=== PATIENT | male | born 1975 | race Caucasian/White ===

== ENCOUNTER 2018-02-23 14:55 | Emergency (ER) | payer OTHER ==
[~2018-02-23] VITALS: Ht 182.9 cm; Wt 80.7 kg
[~2018-02-23 14:55] MED LIST: AMOX1TAB12 PO; FLONASE16 G1 NS; PSEUDOEPHEDRINE60 MG PO
[2018-02-23] MEDS ORDERED: NORFLEX100MG (15:15)
[2018-02-23] MEDS ORDERED: DICLOFENAC POTA50 MG (15:16)
[2018-02-23] MEDS ORDERED: MEDROL2 MG (15:16)
== END 2018-02-23 17:50 | disposition home or self-care (01) ==
LOC: ER 14:55
DX: M54.2 Cervicalgia (principal); M54.5 Low back pain